=== PATIENT | female | born 1980 | race African-American/Black ===

== ENCOUNTER 2025-01-17 11:41 | Outpatient (CLI) | payer BC, SELFPAY ==
--- NOTE | ~2025-01-17 | US_ITS ---
EXAMINATION: US thyroid DATE: 01/17/2025 12:00 INDICATION: Nontoxic goiter, unspecified. TECHNIQUE: Multiple ultrasound images of the thyroid were obtained. COMPARISON: None. FINDINGS: The right thyroid lobe measures 6.2 x 2.4 x 2.4 cm. The left thyroid lobe measures 6.8 x 2.7 x 3.1 c m. The thyroid is diffusely heterogeneous and hypoechoic. Vascularity is increased. In the left thyr oid lobe, there is a 2.8 cm solid, isoechoic, wider than tall nodule with smooth margin without echog enic foci (TI-RADS TR3). IMPRESSION: 1. Left thyroid nodule. Ultrasound-guided fine-needle aspiration is recommended. 2. Heterogeneous, hypervascular thyroid, consistent with chronic lymphocytic (Joselo) thyroiditis. Reviewed, dictated and finalized at location A. IMPRESSION: 1. Left thyroid nodule. Ultrasound-guided fine-needle aspiration is recommended . 2. Heterogeneous, hypervascular thyroid, consistent with chronic lymphocytic (H ashimoto) thyroiditis.
== END 2025-01-17 11:42 | disposition home or self-care (01) ==
LOC: MICIMG 11:44
DX: E04.9 Nontoxic goiter, unspecified (principal)
CPT/HCPCS: 76536